=== PATIENT | male | born 2000 | race Caucasian/White ===

== ENCOUNTER 2023-04-03 20:28 | Emergency (ER) | payer OTHER ==
[~2023-04-03] VITALS: Ht 190.5 cm; Wt 93.0 kg
[2023-04-03 20:32] VITALS: BP 139/80
== END 2023-04-03 21:30 | disposition home or self-care (01) ==
LOC: ER 20:28
DX: S01.511A Laceration without foreign body of lip, initial encounter (principal); W22.8XXA Striking against or struck by other objects, initial encounter
CPT/HCPCS: 12011; 99282-25